=== PATIENT | female | born 1990 | race Caucasian/White ===

== ENCOUNTER 2017-02-27 19:37 | Emergency (ER) | payer SELFPAY ==
[~2017-02-27 19:37] MED LIST: NITR-58 PO; VITAMINS
== END 2017-02-28 00:20 | disposition left against medical advice (07) ==
LOC: E/R 19:37
DX: Z53.21 Procedure and treatment not carried out due to patient leaving prior to being seen by health care provider (principal)

== ENCOUNTER 2017-04-02 06:20 | Emergency (ER) | END 2017-04-02 08:50 | disposition home or self-care (01) ==

== ENCOUNTER 2017-05-24 08:42 | Emergency (ER) | END 2017-05-24 11:30 | disposition home or self-care (01) ==

== ENCOUNTER 2017-07-26 11:49 | Emergency (ER) | END 2017-07-26 14:36 | disposition home or self-care (01) ==

== ENCOUNTER 2017-07-26 16:05 | Inpatient (IN) | END 2017-07-30 16:43 | disposition home or self-care (01) | DRG 766 ==